=== PATIENT | female | born 1940 | race Asian ===

== ENCOUNTER 2024-05-09 17:10 | Inpatient (IN) | payer MEDICARE, OTHER ==
[~2024-05-09] VITALS: Ht 144.8 cm; Wt 55.0 kg
[~2024-05-09 17:10] MED LIST: ASPI-556 PO; CALC-451 PO; CLOP75TA60 PO; HYDR25TA2 PO; LOSA-382 PO; METO25XL PO; MULT-1259 PO; NITR0.4T52 SL
[2024-05-09] MEDS ORDERED: METO2.5T2 PO (17:44)
[2024-05-09] MEDS ORDERED: IBAN150T21 PO (17:44)
[2024-05-09] MEDS ORDERED: POTA-206 PO (17:44)
[2024-05-09] MEDS ORDERED: DIGO125T72 PO (17:44)
[2024-05-09] MEDS ORDERED: FURO40TA5 PO (17:44)
[2024-05-09] MEDS ORDERED: METO50 PO (17:44)
[2024-05-09] MEDS ORDERED: PANT40TA54 PO (17:44)
[2024-05-09] MEDS ORDERED: LATA2.5D14 OU (17:44)
[2024-05-09] MEDS ORDERED: SUCR1TAB2 PO (17:44)
[2024-05-09 17:58] LABS: HEMATOCRIT 38.3 % (36-46); HEMOGLOBIN 12.2 g/dL (12.0-16.0); MEAN CORPUSCULAR HEMOGLOBIN 29.4 pg (26.0-34.0); MEAN CORPUSCULAR HGB CONC 31.8 G/dL (31.0-37.0); MEAN CORPUSCULAR VOLUME 93 fL (80-100); PLATELET COUNT (AUTO) 316 K/uL (150-450); RED BLOOD CELL COUNT(AUTO) 4.13 MIL/uL (4.00-5.20); RED CELL DISTRIBUTION WIDTH 16.9 % (11.5-14.5); WHITE BLOOD COUNT (AUTO) 28.2 K/uL (4.5-11.0)
[2024-05-09 18:07] LABS: CALCIUM, TOTAL 10.9 mg/dL (8.8-10.5); CREATININE 1.7 mg/dL (0.60-1.30); POTASSIUM 5.3 mmol/L (3.5-5.1)
[2024-05-09 18:13] LABS: ALBUMIN 1.6 g/dL (3.4-5.0); BILIRUBIN,TOTAL 1.1 mg/dL (0.1-1.0); TOTAL PROTEIN, SERUM 5.5 g/dL (6.4-8.2)
[2024-05-09 18:15] LABS: BAND NEUTROPHILS % (MANUAL) 11 % (0-5); EOSINOPHILS % (MANUAL) 1 % (1-6); LYMPHOCYTES % (MANUAL) 4 % (22-44); MONOCYTES % (MANUAL) 2 % (2-9); RBC MORPHOLOGY COMMENT NORMAL RBC MORPH; SEGMENTED NEUTROPHILS % 82 % (40-70); TOTAL CELLS COUNTED 100; TROPONIN I-HIGH SENSITIVITY 12 ng/L (<51)
[2024-05-09 18:32] LABS: MAGNESIUM 1.9 mg/dL (1.80-2.40); PHOSPHORUS 4.1 mg/dL (2.5-4.9)
[2024-05-09] MEDS: SODIUM CHLORIDE 0.9% 500 ML IV ONE (18:43)
[2024-05-09 18:59] LABS: APPEARANCE,URINE HAZY (CLEAR); BILIRUBIN,URINE NEGATIVE (NEGATIVE); COLOR,URINE YELLOW (YELLOW); GLUCOSE, URINE (UA) NEGATIVE (NEGATIVE); KETONES,URINE NEGATIVE (NEGATIVE); LEUKOCYTE ESTERASE ,URINE TRACE (NEGATIVE); NITRATE,URINE NEGATIVE (NEGATIVE); OCCULT BLOOD,URINE SMALL (NEGATIVE); PROTEIN,URINE TRACE mg/dL (NEGATIVE); SPECIFIC GRAVITIY, URINE 1.018 (1.003-1.030)
[2024-05-09] MEDS ORDERED: ONDANSETRON HCL 4 MG/2 ML VIAL IVP PRN (19:00)
[2024-05-09] MEDS ORDERED: BISACODYL 10 MG RECTAL RECTAL SUPPOSITORY PR PRN (19:00)
[2024-05-09 19:45] LABS: BACTERIA,URINE Few /HPF (None Seen); WBC,URINE 0-2 /HPF (0-5)
[2024-05-09 19:46] LABS: SQUAMOUS EPITHELIAL CELL,UR Few /LPF (None Seen)
[2024-05-09] MEDS: MetroNIDAZOLE 500 MG/NACL 100 ML IV SCH (19:56)
[2024-05-09 22:29] VITALS: BP 105/44; PULSE 80; RESP 18; TEMP 97.6; O2SAT 92
[2024-05-09] MEDS ORDERED: SODIUM CHLORIDE 0.9% 250 ML IV ONE (22:34)
[2024-05-09] MEDS: CefTRIAXone 1 GM/DEXTROSE 50 ML IV ONE (22:48)
[2024-05-09] MEDS: AZITHROMYCIN 500 MG/NS 250 ML IV ONE (23:23)
[2024-05-10] VITALS (7 sets, daily range): BP systolic 99–128; BP diastolic 47–83; PULSE 74–118; RESP 16–18; TEMP 98.2–98.9; O2SAT 93–95
[2024-05-10] MEDS: HEPARIN SODIUM,PORCINE 5,000 UNITS/ML VIAL SQ SCH (01:24)
[2024-05-10 03:00] LABS: GLUCOMETER DEV NAME(LOC) 5N.1D; GLUCOSE,POINT OF CARE 119 MG/DL (70-110)
[2024-05-10 08:30] LABS: GLUCOMETER DEV NAME(LOC) 5S.1C; GLUCOSE,POINT OF CARE 103 MG/DL (70-110)
[2024-05-10] MEDS: PANTOPRAZOLE SODIUM 40 MG/VIAL IVP SCH (09:07)
[2024-05-10 12:28] LABS: HEMATOCRIT 37.8 % (36-46); HEMOGLOBIN 12.2 g/dL (12.0-16.0); MEAN CORPUSCULAR HEMOGLOBIN 29.5 pg (26.0-34.0); MEAN CORPUSCULAR HGB CONC 32.2 G/dL (31.0-37.0); MEAN CORPUSCULAR VOLUME 92 fL (80-100); PLATELET COUNT (AUTO) 303 K/uL (150-450); RED BLOOD CELL COUNT(AUTO) 4.13 MIL/uL (4.00-5.20); WHITE BLOOD COUNT (AUTO) 22.2 K/uL (4.5-11.0)
[2024-05-10] MEDS: BUMETANIDE 0.25 MG/ML 4 ML VIAL IVP SCH (12:35)
[2024-05-10 12:42] LABS: CALCIUM, TOTAL 10.1 mg/dL (8.8-10.5); CREATININE 1.96 mg/dL (0.60-1.30); POTASSIUM 5.6 mmol/L (3.5-5.1)
[2024-05-10 13:24] LABS: BAND NEUTROPHILS % (MANUAL) 32 % (0-5); LYMPHOCYTES % (MANUAL) 7 % (22-44); MONOCYTES % (MANUAL) 3 % (2-9); SEGMENTED NEUTROPHILS % 58 % (40-70); TOTAL CELLS COUNTED 100
[2024-05-10 13:25] LABS: RBC MORPHOLOGY COMMENT NORMAL RBC MORPH
[2024-05-10 13:54] LABS: C.DIFF GDH ANTIGEN, Stool Positive (Negative)
[2024-05-10 13:56] LABS: C.DIFF TOXINS A&B, Stool Positive (Negative)
[2024-05-10] MEDS: DIGOXIN 250 MCG/ML 2 ML AMP IVP ONE (14:26)
[2024-05-10] MEDS: SODIUM POLYSTYRENE SULFONATE 15 GM/60 ML SUSPENSION BOTTLE PR ONE (14:26)
[2024-05-10] MEDS: AMIODARONE HCL 150 MG in DEXTROSE 5%-WATER 97 ML IV ONE (17:32)
[2024-05-10] MEDS: AMIODARONE HCL 360 MG in DEXTROSE 5%-WATER 242.8 ML IV ONE (17:33)
[2024-05-10 19:16] LABS: GLUCOMETER DEV NAME(LOC) 5S.2D; GLUCOSE,POINT OF CARE 93 MG/DL (70-110)
[2024-05-10 20:11] LABS: GLUCOMETER DEV NAME(LOC) 5N.1D; GLUCOSE,POINT OF CARE 108 MG/DL (70-110)
[2024-05-10] MEDS: VANCOMYCIN HCL 125 MG/2.5 ML SOLUTION ORAL.SYG PO SCH (20:34)
[2024-05-10 22:06] LABS: GLUCOMETER DEV NAME(LOC) 5S.1C; GLUCOSE,POINT OF CARE 124 MG/DL (70-110)
[2024-05-10] MEDS: AMIODARONE HCL 540 MG in DEXTROSE 5%-WATER 239.2 ML IV ONE (23:55)
[2024-05-11 04:00] VITALS: BP 128/57; PULSE 107; RESP 19; TEMP 98.6; O2SAT 96
[2024-05-11 06:56] LABS: HEMATOCRIT 34.1 % (36-46); HEMOGLOBIN 11.1 g/dL (12.0-16.0); MEAN CORPUSCULAR HEMOGLOBIN 29.9 pg (26.0-34.0); MEAN CORPUSCULAR HGB CONC 32.6 G/dL (31.0-37.0); MEAN CORPUSCULAR VOLUME 92 fL (80-100); PLATELET COUNT (AUTO) 261 K/uL (150-450); RED BLOOD CELL COUNT(AUTO) 3.71 MIL/uL (4.00-5.20); RED CELL DISTRIBUTION WIDTH 16.1 % (11.5-14.5); WHITE BLOOD COUNT (AUTO) 16.1 K/uL (4.5-11.0)
[2024-05-11 07:18] LABS: ALBUMIN 1.3 g/dL (3.4-5.0); CREATININE 2.28 mg/dL (0.60-1.30); POTASSIUM 5.6 mmol/L (3.5-5.1); TOTAL PROTEIN, SERUM 4.7 g/dL (6.4-8.2)
[2024-05-11 08:18] VITALS: BP 118/61; PULSE 105; RESP 18; TEMP 98.2; O2SAT 95
[2024-05-11] MEDS: ETHYL ALCOHOL 62% ANTISEPTIC NASAL SANITIZER 0.6 ML AMPUL NASAL SCH (08:40)
[2024-05-11] MEDS: AMIODARONE HCL 200 MG TABLET NG SCH (08:53)
[2024-05-11 08:57] LABS: BAND NEUTROPHILS % (MANUAL) 33 % (0-5); EOSINOPHILS % (MANUAL) 1 % (1-6); LYMPHOCYTES % (MANUAL) 15 % (22-44); MONOCYTES % (MANUAL) 4 % (2-9); SEGMENTED NEUTROPHILS % 47 % (40-70); TOTAL CELLS COUNTED 100
[2024-05-11 08:58] LABS: RBC MORPHOLOGY COMMENT NORMAL RBC MORPH
[2024-05-11] MEDS: ALBUMIN HUMAN 25%-25GM/100ML 100 ML IV SCH (09:31)
[2024-05-11 11:18] VITALS: BP 157/55; PULSE 101; RESP 16; TEMP 97.5; O2SAT 98
[2024-05-11] MEDS: METOPROLOL TARTRATE 25 MG TABLET NG SCH (12:01)
[2024-05-11 12:36] LABS: GLUCOMETER DEV NAME(LOC) 5S.2D; GLUCOSE,POINT OF CARE 101 MG/DL (70-110)
[2024-05-11 12:36] LABS: GLUCOMETER DEV NAME(LOC) 5S.1C; GLUCOSE,POINT OF CARE 109 MG/DL (70-110)
[2024-05-11 15:14] VITALS: BP 111/48; PULSE 74; RESP 16; TEMP 97.3; O2SAT 97
[2024-05-11] MEDS ORDERED: AMIODARONE HCL 750 MG in DEXTROSE 5%-WATER 485 ML IV SCH (17:00)
[2024-05-11 17:30] LABS: GLUCOMETER DEV NAME(LOC) 5S.1C; GLUCOSE,POINT OF CARE 100 MG/DL (70-110)
[2024-05-11] MEDS: SODIUM CHLORIDE 0.9% 1,000 ML IV SCH (17:50)
[2024-05-11 20:04] VITALS: BP 109/94; PULSE 75; RESP 18; TEMP 97.9; O2SAT 97
[2024-05-12 00:21] VITALS: BP 102/47; PULSE 66; RESP 18; TEMP 97.5; O2SAT 96
[2024-05-12 04:54] VITALS: BP 95/40; PULSE 72; RESP 16; TEMP 97.4; O2SAT 96
[2024-05-12 05:36] LABS: GLUCOMETER DEV NAME(LOC) 5S.2D; GLUCOSE,POINT OF CARE 93 MG/DL (70-110)
[2024-05-12] MEDS: DEXTROSE 50%-WATER 25 GM/50 ML SYRINGE IVP PRN (06:23)
[2024-05-12 06:35] LABS: GLUCOMETER DEV NAME(LOC) 5S.1C; GLUCOSE,POINT OF CARE 69 MG/DL (70-110)
[2024-05-12 06:56] LABS: CALCIUM, TOTAL 10.2 mg/dL (8.8-10.5); CREATININE 2.43 mg/dL (0.60-1.30); POTASSIUM 4.6 mmol/L (3.5-5.1)
[2024-05-12 07:06] LABS: HEMOGLOBIN 10.5 g/dL (12.0-16.0); MEAN CORPUSCULAR HEMOGLOBIN 29.4 pg (26.0-34.0); MEAN CORPUSCULAR HGB CONC 31.9 G/dL (31.0-37.0); MEAN CORPUSCULAR VOLUME 92 fL (80-100); PLATELET COUNT (AUTO) 179 K/uL (150-450); RED BLOOD CELL COUNT(AUTO) 3.58 MIL/uL (4.00-5.20); RED CELL DISTRIBUTION WIDTH 16.9 % (11.5-14.5); WHITE BLOOD COUNT (AUTO) 12.5 K/uL (4.5-11.0)
[2024-05-12 07:58] LABS: BAND NEUTROPHILS % (MANUAL) 7 % (0-5); LYMPHOCYTES % (MANUAL) 4 % (22-44); MONOCYTES % (MANUAL) 3 % (2-9); SEGMENTED NEUTROPHILS % 86 % (40-70); TOTAL CELLS COUNTED 100
[2024-05-12 08:00] LABS: PLATELET MORPHOLOGY COMMENT LARGE PLTS PRESENT; RBC MORPHOLOGY COMMENT ABNORMAL RBC MORPH
[2024-05-12 08:09] VITALS: BP 112/42; PULSE 71; RESP 15; TEMP 97.6; O2SAT 95
[2024-05-12 15:24] VITALS: BP 105/55; PULSE 68; RESP 20; TEMP 97.1; O2SAT 99
[2024-05-12 19:22] VITALS: BP 106/45; PULSE 78; RESP 18; TEMP 97.6; O2SAT 98
[2024-05-13 04:00] VITALS: BP 113/48; PULSE 70; RESP 18; TEMP 97.6; O2SAT 100
[2024-05-13 04:28] LABS: APPEARANCE,URINE CLEAR (CLEAR); BILIRUBIN,URINE NEGATIVE (NEGATIVE); COLOR,URINE YELLOW (YELLOW); GLUCOSE, URINE (UA) NEGATIVE (NEGATIVE); KETONES,URINE TRACE mg/dL (NEGATIVE); LEUKOCYTE ESTERASE ,URINE NEGATIVE (NEGATIVE); NITRATE,URINE NEGATIVE (NEGATIVE); OCCULT BLOOD,URINE NEGATIVE (NEGATIVE); PH,URINE 5.5 (5.0-8.0); PROTEIN,URINE TRACE mg/dL (NEGATIVE); SPECIFIC GRAVITIY, URINE 1.014 (1.003-1.030); UROBILINOGEN,URINE <=1.0 mg/dL (<=1.0)
[2024-05-13 04:30] LABS: CREATININE,URINE RANDOM 45.7 mg/dL (30.0-125.0); PROTEIN,URINE RANDOM 43 mg/dL (0-11.9); SODIUM,URINE RANDOM 5 mmol/l (20-110); UREA NITROGEN,URINE RANDOM 708 mg/dL (350-1000)
[2024-05-13 07:00] LABS: HEMATOCRIT 31.9 % (36-46); HEMOGLOBIN 10.7 g/dL (12.0-16.0); MEAN CORPUSCULAR HEMOGLOBIN 30.2 pg (26.0-34.0); MEAN CORPUSCULAR HGB CONC 33.5 G/dL (31.0-37.0); MEAN CORPUSCULAR VOLUME 90 fL (80-100); PLATELET COUNT (AUTO) 126 K/uL (150-450); RED BLOOD CELL COUNT(AUTO) 3.54 MIL/uL (4.00-5.20); RED CELL DISTRIBUTION WIDTH 16.6 % (11.5-14.5); WHITE BLOOD COUNT (AUTO) 9.9 K/uL (4.5-11.0)
[2024-05-13 07:05] LABS: BAND NEUTROPHILS % (MANUAL) 8 % (0-5); LYMPHOCYTES % (MANUAL) 5 % (22-44); MONOCYTES % (MANUAL) 4 % (2-9); RBC MORPHOLOGY COMMENT ABNORMAL R; SEGMENTED NEUTROPHILS % 83 % (40-70); TOTAL CELLS COUNTED 100
[2024-05-13 07:13] LABS: CALCIUM, TOTAL 10.7 mg/dL (8.8-10.5); CREATININE 2.39 mg/dL (0.60-1.30); MAGNESIUM 2.1 mg/dL (1.80-2.40); PHOSPHORUS 4.1 mg/dL (2.5-4.9); POTASSIUM 4.3 mmol/L (3.5-5.1)
[2024-05-13 07:41] LABS: GLUCOMETER DEV NAME(LOC) 4E.2; GLUCOSE,POINT OF CARE 83 MG/DL (70-110)
[2024-05-13 08:40] VITALS: BP 116/55; PULSE 72; RESP 19; TEMP 98; O2SAT 97
[2024-05-13 11:36] LABS: GLUCOMETER DEV NAME(LOC) 6N.2B; GLUCOSE,POINT OF CARE 105 MG/DL (70-110)
[2024-05-13 13:01] LABS: GLUCOMETER DEV NAME(LOC) 4E.2; GLUCOSE,POINT OF CARE 127 MG/DL (70-110)
[2024-05-13 15:25] VITALS: BP 101/71; PULSE 61; RESP 18; TEMP 98; O2SAT 95
[2024-05-13 19:51] LABS: GLUCOMETER DEV NAME(LOC) 4E.2; GLUCOSE,POINT OF CARE 146 MG/DL (70-110)
[2024-05-13 20:12] VITALS: BP 98/56; PULSE 65; RESP 18; TEMP 97.6; O2SAT 96
[2024-05-13 23:25] LABS: GLUCOMETER DEV NAME(LOC) 4E.2; GLUCOSE,POINT OF CARE 135 MG/DL (70-110)
[2024-05-14 00:29] VITALS: BP 97/45; PULSE 56; RESP 18; TEMP 97.6; O2SAT 95
[2024-05-14 04:39] VITALS: BP 106/48; PULSE 83; RESP 20; TEMP 98.1; O2SAT 96
[2024-05-14] MEDS: INSULIN LISPRO 100 UNITS/ML SQ PRN (06:07)
[2024-05-14 07:58] LABS: ALBUMIN 2.7 g/dL (3.4-5.0); BILIRUBIN,TOTAL 1.2 mg/dL (0.1-1.0); CALCIUM, TOTAL 10.6 mg/dL (8.8-10.5); CREATININE 2.23 mg/dL (0.60-1.30); POTASSIUM 3.3 mmol/L (3.5-5.1); TOTAL PROTEIN, SERUM 5.2 g/dL (6.4-8.2)
[2024-05-14 08:11] LABS: VANCOMYCIN,RANDOM 5.7 mcg/mL (25.0-50.0)
[2024-05-14 08:23] VITALS: BP 100/44; PULSE 76; RESP 20; TEMP 97; O2SAT 96
[2024-05-14] MEDS: POTASSIUM CHLORIDE 10% 40 MEQ/30 ML LIQUID UDCUP NG SCH (12:26)
[2024-05-14 12:46] LABS: GLUCOMETER DEV NAME(LOC) 6N.2B; GLUCOSE,POINT OF CARE 148 MG/DL (70-110)
[2024-05-14 16:37] VITALS: BP 102/36; PULSE 76; RESP 18; TEMP 96.8; O2SAT 97
[2024-05-14 16:51] LABS: GLUCOMETER DEV NAME(LOC) 6N.2B; GLUCOSE,POINT OF CARE 132 MG/DL (70-110)
[2024-05-14 17:21] LABS: GLUCOMETER DEV NAME(LOC) 4E.2; GLUCOSE,POINT OF CARE 146 MG/DL (70-110)
[2024-05-14 19:50] VITALS: BP 104/47; PULSE 80; RESP 18; TEMP 98.1; O2SAT 96
[2024-05-15 01:31] LABS: GLUCOMETER DEV NAME(LOC) 4E.2; GLUCOSE,POINT OF CARE 150 MG/DL (70-110)
[2024-05-15] MEDS: ACETAMINOPHEN 325 MG TABLET PO PRN (02:05)
[2024-05-15 02:59] VITALS: BP 110/41; PULSE 77; RESP 18; TEMP 97.5; O2SAT 98
[2024-05-15 07:06] LABS: HEMATOCRIT 30.8 % (36-46); HEMOGLOBIN 9.8 g/dL (12.0-16.0); MEAN CORPUSCULAR HEMOGLOBIN 30.6 pg (26.0-34.0); MEAN CORPUSCULAR HGB CONC 31.8 G/dL (31.0-37.0); MEAN CORPUSCULAR VOLUME 96 fL (80-100); PLATELET COUNT (AUTO) 104 K/uL (150-450); RED BLOOD CELL COUNT(AUTO) 3.21 MIL/uL (4.00-5.20); RED CELL DISTRIBUTION WIDTH 16.4 % (11.5-14.5); WHITE BLOOD COUNT (AUTO) 5.1 K/uL (4.5-11.0)
[2024-05-15 07:15] LABS: GLUCOMETER DEV NAME(LOC) 4E.2; GLUCOSE,POINT OF CARE 159 MG/DL (70-110)
[2024-05-15 07:33] LABS: ALBUMIN 2.2 g/dL (3.4-5.0); CALCIUM, TOTAL 10.4 mg/dL (8.8-10.5); CREATININE 1.98 mg/dL (0.60-1.30); POTASSIUM 4.6 mmol/L (3.5-5.1); TOTAL PROTEIN, SERUM 4.8 g/dL (6.4-8.2)
[2024-05-15 07:44] LABS: BAND NEUTROPHILS % (MANUAL) 4 % (0-5); LYMPHOCYTES % (MANUAL) 4 % (22-44); MONOCYTES % (MANUAL) 3 % (2-9); SEGMENTED NEUTROPHILS % 89 % (40-70); TOTAL CELLS COUNTED 100
[2024-05-15 07:47] VITALS: BP 94/48; PULSE 78; RESP 16; TEMP 98.4; O2SAT 99
[2024-05-15 15:50] VITALS: BP 102/41; PULSE 75; RESP 16; TEMP 97.5; O2SAT 97
[2024-05-15 20:00] VITALS: BP 107/47; PULSE 79; RESP 18; TEMP 98; O2SAT 95
[2024-05-15 20:06] LABS: GLUCOMETER DEV NAME(LOC) 4E.2; GLUCOSE,POINT OF CARE 143 MG/DL (70-110)
[2024-05-15 20:11] LABS: GLUCOMETER DEV NAME(LOC) 6N.2B; GLUCOSE,POINT OF CARE 137 MG/DL (70-110)
[2024-05-15 21:40] LABS: GLUCOMETER DEV NAME(LOC) 4E.2; GLUCOSE,POINT OF CARE 138 MG/DL (70-110)
[2024-05-16 05:21] VITALS: BP 104/40; PULSE 80; RESP 18; TEMP 97.5; O2SAT 95
[2024-05-16 06:33] LABS: CREATININE 1.97 mg/dL (0.60-1.30); POTASSIUM 5.5 mmol/L (3.5-5.1)
[2024-05-16 07:11] LABS: BASOPHILS % (AUTO) 0.2 % (0.0-2.0); EOSINOPHILS % (AUTO) 0.7 % (1.0-6.0); HEMATOCRIT 32.2 % (36-46); HEMOGLOBIN 10.6 g/dL (12.0-16.0); LYMPHOCYTES # (AUTO) 0.3 K/uL (1.0-4.8); LYMPHOCYTES % (AUTO) 4.8 % (22.0-44.0); MEAN CORPUSCULAR HEMOGLOBIN 30.4 pg (26.0-34.0); MEAN CORPUSCULAR HGB CONC 32.8 G/dL (31.0-37.0); MEAN CORPUSCULAR VOLUME 93 fL (80-100); MONOCYTES # (AUTO) 0.4 K/uL (0.1-1.0); NEUTROPHILS # (AUTO) 6.2 K/uL (1.8-7.7); PLATELET COUNT (AUTO) 156 K/uL (150-450); RED BLOOD CELL COUNT(AUTO) 3.47 MIL/uL (4.00-5.20); RED CELL DISTRIBUTION WIDTH 16.4 % (11.5-14.5); WHITE BLOOD COUNT (AUTO) 7.1 K/uL (4.5-11.0)
[2024-05-16 07:38] LABS: NEUTROPHILS % (AUTO) 88.3 % (40.0-70.0); RBC MORPHOLOGY COMMENT ABNORMAL RBC MORPH
[2024-05-16 08:31] VITALS: BP 118/53; PULSE 84; RESP 18; TEMP 97.1; O2SAT 97
[2024-05-16 12:41] LABS: GLUCOMETER DEV NAME(LOC) 6N.2B; GLUCOSE,POINT OF CARE 123 MG/DL (70-110)
[2024-05-16] MEDS: DEXTROSE 5%-WATER 1,000 ML IV SCH (12:52)
[2024-05-16 16:30] VITALS: BP 105/46; PULSE 86; RESP 17; TEMP 97.3; O2SAT 97
[2024-05-16 20:12] VITALS: BP 107/48; PULSE 85; RESP 18; TEMP 97.5; O2SAT 99
[2024-05-16 21:11] LABS: GLUCOMETER DEV NAME(LOC) 4E.2; GLUCOSE,POINT OF CARE 97 MG/DL (70-110)
[2024-05-16 21:46] LABS: GLUCOMETER DEV NAME(LOC) 6N.2B; GLUCOSE,POINT OF CARE 113 MG/DL (70-110)
[2024-05-16 21:46] LABS: GLUCOMETER DEV NAME(LOC) 6N.2B; GLUCOSE,POINT OF CARE 129 MG/DL (70-110)
[2024-05-17 04:43] VITALS: BP 101/45; PULSE 61; RESP 18; TEMP 96.8; O2SAT 98
[2024-05-17 08:09] VITALS: BP 99/62; PULSE 62; RESP 17; O2SAT 97
[2024-05-17 13:56] LABS: GLUCOMETER DEV NAME(LOC) 4E.2; GLUCOSE,POINT OF CARE 163 MG/DL (70-110)
[2024-05-17 16:10] VITALS: BP 89/50; PULSE 60; RESP 17; O2SAT 99
[2024-05-17 21:25] VITALS: BP 95/46; PULSE 60; RESP 18; TEMP 97.5; O2SAT 99
[2024-05-17 21:26] VITALS: BP 92/44; PULSE 55; RESP 18; O2SAT 98
[2024-05-17 22:12] VITALS: BP 97/57; PULSE 61; RESP 20; O2SAT 98
[2024-05-18 04:56] VITALS: BP 96/54; PULSE 60; RESP 18; TEMP 97.6; O2SAT 95
[2024-05-18 05:46] LABS: BASOPHILS % (AUTO) 0.1 % (0.0-2.0); EOSINOPHILS % (AUTO) 0.8 % (1.0-6.0); HEMATOCRIT 30.3 % (36-46); LYMPHOCYTES # (AUTO) 0.2 K/uL (1.0-4.8); LYMPHOCYTES % (AUTO) 3.1 % (22.0-44.0); MEAN CORPUSCULAR HEMOGLOBIN 30.5 pg (26.0-34.0); MEAN CORPUSCULAR VOLUME 93 fL (80-100); MONOCYTES # (AUTO) 0.4 K/uL (0.1-1.0); MONOCYTES % (AUTO) 5.1 % (2.0-9.0); NEUTROPHILS # (AUTO) 6.7 K/uL (1.8-7.7); PLATELET COUNT (AUTO) 188 K/uL (150-450); RED BLOOD CELL COUNT(AUTO) 3.27 MIL/uL (4.00-5.20); RED CELL DISTRIBUTION WIDTH 16.7 % (11.5-14.5); WHITE BLOOD COUNT (AUTO) 7.4 K/uL (4.5-11.0)
[2024-05-18 05:48] LABS: ALBUMIN 1.9 g/dL (3.4-5.0); BILIRUBIN,TOTAL 1.4 mg/dL (0.1-1.0); CALCIUM, TOTAL 10.3 mg/dL (8.8-10.5); CREATININE 2.28 mg/dL (0.60-1.30); POTASSIUM 5.7 mmol/L (3.5-5.1); TOTAL PROTEIN, SERUM 5.1 g/dL (6.4-8.2)
[2024-05-18 06:15] LABS: NEUTROPHILS % (AUTO) 90.9 % (40.0-70.0)
[2024-05-18 06:21] LABS: GLUCOMETER DEV NAME(LOC) 6N.2B; GLUCOSE,POINT OF CARE 148 MG/DL (70-110)
[2024-05-18 06:26] LABS: GLUCOMETER DEV NAME(LOC) 4E.2; GLUCOSE,POINT OF CARE 152 MG/DL (70-110)
[2024-05-18 07:20] LABS: GLUCOMETER DEV NAME(LOC) 6N.2B; GLUCOSE,POINT OF CARE 142 MG/DL (70-110)
[2024-05-18] MEDS: SODIUM ZIRCONIUM CYCLOSILICATE 5 GM POWDER PACKET NG ONE (10:25)
[2024-05-18] MEDS: SODIUM BICARBONATE 100 MEQ in DEXTROSE 5%-WATER 1,000 ML IV ONE (10:25)
[2024-05-18] MEDS ORDERED: SODIUM CHLORIDE 0.9% 500 ML IV ONE (14:46)
[2024-05-18 16:00] VITALS: BP 76/36; PULSE 60; RESP 20; TEMP 97.6; O2SAT 97
[2024-05-18] MEDS: SODIUM CHLORIDE 0.9% 250 ML IV ONE (16:51)
[2024-05-18 20:29] VITALS: BP 80/39; PULSE 60; RESP 17; TEMP 96.2; O2SAT 98
[2024-05-18 22:16] LABS: GLUCOMETER DEV NAME(LOC) 4E.2; GLUCOSE,POINT OF CARE 121 MG/DL (70-110)
[2024-05-18 22:16] LABS: GLUCOMETER DEV NAME(LOC) 4E.2; GLUCOSE,POINT OF CARE 129 MG/DL (70-110)
[2024-05-18 22:16] LABS: GLUCOMETER DEV NAME(LOC) 4E.2; GLUCOSE,POINT OF CARE 127 MG/DL (70-110)
[2024-05-19 00:37] VITALS: BP 82/34; PULSE 62; RESP 17; TEMP 96.6; O2SAT 100
[2024-05-19 05:06] VITALS: BP 95/54; PULSE 60; RESP 18; TEMP 97; O2SAT 98
[2024-05-19 05:48] LABS: CALCIUM, TOTAL 10.4 mg/dL (8.8-10.5); CREATININE 2.62 mg/dL (0.60-1.30); POTASSIUM 5.9 mmol/L (3.5-5.1)
[2024-05-19 05:56] LABS: GLUCOMETER DEV NAME(LOC) 4E.2; GLUCOSE,POINT OF CARE 143 MG/DL (70-110)
[2024-05-19 08:40] VITALS: BP 77/38; PULSE 60; RESP 16; TEMP 97.5; O2SAT 97
[2024-05-19] MEDS: SODIUM ZIRCONIUM CYCLOSILICATE 5 GM POWDER PACKET PO SCH (11:15)
[2024-05-19] MEDS: ALBUMIN HUMAN 25%-12.5GM/50ML 50 ML IV SCH (12:05)
[2024-05-19 12:56] LABS: GLUCOMETER DEV NAME(LOC) 4E.2; GLUCOSE,POINT OF CARE 103 MG/DL (70-110)
[2024-05-19 16:00] VITALS: BP 97/45; PULSE 60; RESP 15; TEMP 97.8; O2SAT 96
[2024-05-19] MEDS ORDERED: SODIUM CHLORIDE 0.9% 250 ML IV ONE (16:49)
[2024-05-19] MEDS: SODIUM BICARBONATE [ADULT] 8.4% 50 MEQ/50 ML SYRINGE IVP ONE (16:51)
[2024-05-19] MEDS: BUMETANIDE 0.25 MG/ML 4 ML VIAL IVP ONE (16:52)
[2024-05-19] MEDS: SODIUM ZIRCONIUM CYCLOSILICATE 5 GM POWDER PACKET PO ONE (16:52)
[2024-05-19] MEDS: DEXTROSE 50%-WATER 25 GM/50 ML SYRINGE IVP ONE (16:52)
[2024-05-19] MEDS: INSULIN REGULAR, HUMAN 100 UNITS/ML IVP ONE (16:53)
[2024-05-19] MEDS: MIDODRINE HCL 5 MG TABLET NG SCH (16:53)
[2024-05-19] MEDS: PHENYLEPHRINE 200 MG/D5%-WATER 250 ML IV PRN (16:54)
[2024-05-19 18:10] LABS: GLUCOMETER DEV NAME(LOC) ICU.S6; GLUCOSE,POINT OF CARE 176 MG/DL (70-110)
[2024-05-19 20:00] VITALS: BP 87/51; PULSE 60; PULSE 62; RESP 19; TEMP 96.6; O2SAT 97
[2024-05-19 23:16] LABS: GLUCOMETER DEV NAME(LOC) ICU.S6; GLUCOSE,POINT OF CARE 119 MG/DL (70-110)
[2024-05-20] VITALS: BP 91/56; PULSE 60; RESP 23; TEMP 97; O2SAT 97
[2024-05-20 04:00] VITALS: BP 88/56; PULSE 60; RESP 11; TEMP 97; O2SAT 98
[2024-05-20 05:51] LABS: BASOPHILS % (AUTO) 0.1 % (0.0-2.0); EOSINOPHILS % (AUTO) 0.4 % (1.0-6.0); HEMATOCRIT 32.8 % (36-46); HEMOGLOBIN 10.7 g/dL (12.0-16.0); LYMPHOCYTES # (AUTO) 0.4 K/uL (1.0-4.8); LYMPHOCYTES % (AUTO) 5.1 % (22.0-44.0); MEAN CORPUSCULAR HEMOGLOBIN 30.6 pg (26.0-34.0); MEAN CORPUSCULAR HGB CONC 32.6 G/dL (31.0-37.0); MEAN CORPUSCULAR VOLUME 94 fL (80-100); MONOCYTES # (AUTO) 0.4 K/uL (0.1-1.0); MONOCYTES % (AUTO) 5.2 % (2.0-9.0); NEUTROPHILS # (AUTO) 6.5 K/uL (1.8-7.7); PLATELET COUNT (AUTO) 254 K/uL (150-450); RED CELL DISTRIBUTION WIDTH 17.2 % (11.5-14.5)
[2024-05-20 06:01] LABS: ALBUMIN 2.5 g/dL (3.4-5.0); BILIRUBIN,TOTAL 1.9 mg/dL (0.1-1.0); CREATININE 2.96 mg/dL (0.60-1.30); POTASSIUM 5.9 mmol/L (3.5-5.1); TOTAL PROTEIN, SERUM 5.9 g/dL (6.4-8.2)
[2024-05-20 06:05] LABS: NEUTROPHILS % (AUTO) 89.2 % (40.0-70.0)
[2024-05-20 08:00] VITALS: BP 90/62; PULSE 61; RESP 19; TEMP 96.2; O2SAT 97
[2024-05-20] MEDS: FIDAXOMICIN 200 MG TABLET NG SCH (09:02)
[2024-05-20 12:00] VITALS: BP 92/60; PULSE 61; PULSE 66; RESP 19; TEMP 95.8; O2SAT 97
[2024-05-20 12:25] LABS: GLUCOMETER DEV NAME(LOC) ICU.S6; GLUCOSE,POINT OF CARE 63 MG/DL (70-110)
[2024-05-20 12:25] LABS: GLUCOMETER DEV NAME(LOC) ICU.S6; GLUCOSE,POINT OF CARE 83 MG/DL (70-110)
[2024-05-20 12:25] LABS: GLUCOMETER DEV NAME(LOC) ICU.S6; GLUCOSE,POINT OF CARE 117 MG/DL (70-110)
[2024-05-20 16:00] VITALS: BP 102/63; PULSE 61; RESP 13; TEMP 95.6; O2SAT 97
[2024-05-20 18:26] LABS: GLUCOMETER DEV NAME(LOC) ICUN.5; GLUCOSE,POINT OF CARE 68 MG/DL (70-110)
[2024-05-20 18:26] LABS: GLUCOMETER DEV NAME(LOC) ICUN.5; GLUCOSE,POINT OF CARE 173 MG/DL (70-110)
[2024-05-20 20:00] VITALS: BP 97/57; PULSE 67; RESP 16; TEMP 96.6; O2SAT 94
[2024-05-20 22:26] LABS: GLUCOMETER DEV NAME(LOC) ICU.S6; GLUCOSE,POINT OF CARE 97 MG/DL (70-110)
[2024-05-21] VITALS: BP 96/46; PULSE 72; PULSE 77; RESP 20; TEMP 100.2; O2SAT 96
[2024-05-21 00:25] LABS: ABG A-A DIFF O2 152.1 mmHg (10-20.0); ABG BASE EXCESS -7.7 mmol/L (-2.0-3.0); ABG CARBOXYHEMOGLOBIN 1.1 % (0.5-1.5); ABG HCO3 19.1 mmol/L (21.0-28.0); ABG METHEMOGLOBIN 0.3 % (0.0-1.5); ABG OXYGEN CONTENT 14.8 mL/dL (15.0-23.0); ABG OXYGEN SATURATION 97.3 % (94.0-98.0); ABG OXYHEMOGLOBIN 95.9 % (94.0-98.0); ABG PCO2 29 mmHg (32.0-45.0); ABG PH 7.386 (7.350-7.450); ABG TOTAL HEMOGLOBIN 10.9 G/dL (12.0-16.0); ALLEN TEST, BLOOD GAS Positive; O2 DEVICE,BLOOD GAS NASAL CANNULA (ROOM AIR); PO2, ARTERIAL BG 98.2 mmHg (83.0-108.0); SITE, BLOOD GAS LFT RADIAL; SOURCE, BLOOD GAS ARTERIAL; TEMPERATURE, FAHRENHEIT, BG 100.2 FAHREN (96.0-98.6)
[2024-05-21 04:00] VITALS: BP 126/53; PULSE 76; PULSE 80; RESP 23; TEMP 97.4; O2SAT 95
[2024-05-21 07:38] LABS: BASOPHILS % (AUTO) 0.1 % (0.0-2.0); EOSINOPHILS % (AUTO) 0.2 % (1.0-6.0); HEMATOCRIT 31.5 % (36-46); HEMOGLOBIN 10.2 g/dL (12.0-16.0); LYMPHOCYTES # (AUTO) 0.2 K/uL (1.0-4.8); LYMPHOCYTES % (AUTO) 3.3 % (22.0-44.0); MEAN CORPUSCULAR HEMOGLOBIN 30.9 pg (26.0-34.0); MEAN CORPUSCULAR HGB CONC 32.4 G/dL (31.0-37.0); MEAN CORPUSCULAR VOLUME 95 fL (80-100); MONOCYTES # (AUTO) 0.3 K/uL (0.1-1.0); MONOCYTES % (AUTO) 3.8 % (2.0-9.0); NEUTROPHILS # (AUTO) 6.7 K/uL (1.8-7.7); PLATELET COUNT (AUTO) 225 K/uL (150-450); RED CELL DISTRIBUTION WIDTH 17.2 % (11.5-14.5); WHITE BLOOD COUNT (AUTO) 7.2 K/uL (4.5-11.0)
[2024-05-21 07:55] LABS: CREATININE 3.52 mg/dL (0.60-1.30); MAGNESIUM 2.5 mg/dL (1.80-2.40); PHOSPHORUS 5.2 mg/dL (2.5-4.9)
[2024-05-21 08:00] VITALS: BP 118/61; PULSE 71; RESP 21; TEMP 95.8; O2SAT 97
[2024-05-21 08:00] LABS: POTASSIUM 5.9 mmol/L (3.5-5.1)
[2024-05-21 08:18] LABS: NEUTROPHILS % (AUTO) 92.6 % (40.0-70.0)
[2024-05-21 11:10] LABS: GLUCOMETER DEV NAME(LOC) ICU.S6; GLUCOSE,POINT OF CARE 58 MG/DL (70-110)
[2024-05-21] MEDS ORDERED: SODIUM CHLORIDE 0.9% 250 ML IV ONE (11:52)
[2024-05-21] MEDS: NOREPINEPHRINE 8 MG/0.9 % NACL 250 ML IV PRN (11:54)
[2024-05-21] MEDS: SODIUM CHLORIDE 0.9% 1,000 ML IV SCH (11:54)
[2024-05-21 12:00] VITALS: BP 96/51; PULSE 65; PULSE 70; RESP 14; TEMP 96.3; O2SAT 99
[2024-05-21] MEDS: SODIUM BICARBONATE 650 MG TABLET PO SCH (14:02)
[2024-05-21 16:00] VITALS: BP 109/71; PULSE 70; RESP 20; TEMP 96.8; O2SAT 98
[2024-05-21 16:18] LABS: LACTIC ACID 4.4 mmol/L (0.4-2.0)
[2024-05-21 17:21] LABS: GLUCOMETER DEV NAME(LOC) ICU.S6; GLUCOSE,POINT OF CARE 123 MG/DL (70-110)
[2024-05-21 17:21] LABS: GLUCOMETER DEV NAME(LOC) ICUN.5; GLUCOSE,POINT OF CARE 105 MG/DL (70-110)
[2024-05-21 20:00] VITALS: BP 118/58; PULSE 78; RESP 22; TEMP 97.1; O2SAT 97
[2024-05-21] MEDS: HEPARIN SODIUM,PORCINE 5,000 UNITS/ML VIAL SQ SCH (22:24)
[2024-05-22] VITALS: BP 101/50; PULSE 75; RESP 21; TEMP 97.8; O2SAT 98
[2024-05-22 04:00] VITALS: BP 101/48; PULSE 73; RESP 20; TEMP 97.7; O2SAT 97
[2024-05-22 05:46] LABS: GLUCOMETER DEV NAME(LOC) ICUN.5; GLUCOSE,POINT OF CARE 110 MG/DL (70-110)
[2024-05-22 06:10] LABS: GLUCOMETER DEV NAME(LOC) ICU.S6; GLUCOSE,POINT OF CARE 117 MG/DL (70-110)
[2024-05-22 08:00] VITALS: BP 99/54; PULSE 75; RESP 20; TEMP 97.4; O2SAT 97
[2024-05-22 08:21] LABS: HEMATOCRIT 30.2 % (36-46); HEMOGLOBIN 9.9 g/dL (12.0-16.0); MEAN CORPUSCULAR HEMOGLOBIN 31.1 pg (26.0-34.0); MEAN CORPUSCULAR HGB CONC 32.8 G/dL (31.0-37.0); MEAN CORPUSCULAR VOLUME 95 fL (80-100); PLATELET COUNT (AUTO) 227 K/uL (150-450); RED BLOOD CELL COUNT(AUTO) 3.18 MIL/uL (4.00-5.20); RED CELL DISTRIBUTION WIDTH 17.3 % (11.5-14.5)
[2024-05-22 08:29] LABS: CREATININE 3.65 mg/dL (0.60-1.30); MAGNESIUM 2.5 mg/dL (1.80-2.40); PHOSPHORUS 5.3 mg/dL (2.5-4.9); POTASSIUM 5.8 mmol/L (3.5-5.1)
[2024-05-22] MEDS: SODIUM ZIRCONIUM CYCLOSILICATE 5 GM POWDER PACKET PO SCH (08:49)
[2024-05-22 09:18] LABS: BAND NEUTROPHILS % (MANUAL) 5 % (0-5); CORRECTED WHITE BLOOD COUNT 9.2 K/uL (4.5-11.0); LYMPHOCYTES % (MANUAL) 4 % (22-44); MONOCYTES % (MANUAL) 2 % (2-9); SEGMENTED NEUTROPHILS % 89 % (40-70); TOTAL CELLS COUNTED 100; WHITE BLOOD COUNT (AUTO) 9.2 K/uL (4.5-11.0)
[2024-05-22 12:00] VITALS: BP 113/58; PULSE 69; RESP 13; TEMP 97.4; O2SAT 93
[2024-05-22 12:56] LABS: GLUCOMETER DEV NAME(LOC) ICUN.5; GLUCOSE,POINT OF CARE 117 MG/DL (70-110)
[2024-05-22] MEDS ORDERED: LORazepam 2 MG/ML VIAL IVP PRN (14:00)
[2024-05-22 14:34] VITALS: RESP 32
[2024-05-22] MEDS: MORPHINE SULFATE 100 MG/NS/PF 100 ML IV PRN (14:34)
== END 2024-05-22 17:28 | DRG 871 ==
LOC: EMS 17:10 → EDH 18:55 → 5S 22:08 → 6S 05-12 11:03 → 4E 05-12 18:14 → ICU 05-19 14:20
PROVIDERS: ADMIT Internal Medicine; ATTEND Internal Medicine
PROC: 05HA33Z Insertion of Infusion Device into Left Brachial Vein, Percutaneous Approach (ICD-10-PCS; principal; 2024-05-22)
PROC: B54NZZA Ultrasonography of Left Upper Extremity Veins, Guidance (ICD-10-PCS; 2024-05-22)
DX: A41.9 Sepsis, unspecified organism (principal); E43 Unspecified severe protein-calorie malnutrition; G92.8 Other toxic encephalopathy; N17.0 Acute kidney failure with tubular necrosis; J15.69 Pneumonia due to other Gram-negative bacteria; J96.90 Respiratory failure, unspecified, unspecified whether with hypoxia or hypercapnia; A04.72 Enterocolitis due to Clostridium difficile, not specified as recurrent; I13.0 Hypertensive heart and chronic kidney disease with heart failure and stage 1 through stage 4 chronic kidney disease, or unspecified chronic kidney disease; E87.1 Hypo-osmolality and hyponatremia; E87.20 Acidosis, unspecified; I49.5 Sick sinus syndrome; Z66 Do not resuscitate; R62.7 Adult failure to thrive; I25.10 Atherosclerotic heart disease of native coronary artery without angina pectoris; N18.9 Chronic kidney disease, unspecified; E87.5 Hyperkalemia; E78.5 Hyperlipidemia, unspecified; I48.91 Unspecified atrial fibrillation; I50.9 Heart failure, unspecified; E87.6 Hypokalemia; E11.22 Type 2 diabetes mellitus with diabetic chronic kidney disease; D64.9 Anemia, unspecified; I08.1 Rheumatic disorders of both mitral and tricuspid valves; K21.9 Gastro-esophageal reflux disease without esophagitis; R13.10 Dysphagia, unspecified; Z86.16 Personal history of COVID-19; Z91.158 Patient's noncompliance with renal dialysis for other reason; Z95.810 Presence of automatic (implantable) cardiac defibrillator; Z88.8 Allergy status to other drugs, medicaments and biological substances; Z91.013 Allergy to seafood; Z68.26 Body mass index [BMI] 26.0-26.9, adult
CPT/HCPCS: 36245; 36569; 71045; 74018; 74230; 76770; 76937; 80048; 80053; 80202; 81001; 81003; 82550; 82570; 82805; 82962; 83605; 83735; 83880; 84100; 84132; 84156; 84300; 84484; 84540; 85025; 85610; 87040; 87081; 87324; 87449; 87481; 92526; 92610; 92611; 93005; 93306; 93970; 93971; 97140; 97162; 97167; 97535; 99285; C9113; G0378; J0282; J0456; J0696; J1160; J1644; J1815; J2270; J2370; J3490; J7030; J7040; J7050; J7060; P9046; P9047; 36415-L1; 36415-TC; J2471